=== PATIENT | female | born 1975 | race Caucasian/White ===

== ENCOUNTER 2025-02-26 22:34 | Emergency (ER) | payer BC, SELFPAY ==
[2025-02-26 22:36] VITALS: BP 168/103
--- NOTE | 2025-02-26 23:06 | ED.GENMED ---
History of Present Illness
General
Chief Complaint: Skin Surface Trauma
Source: patient
Exam Limitations: none
Time Seen by Provider: 02/26/25 23:02
Nursing documentation reviewed up to this point in time: agreed with
History of Present Illness
History of Present Illness:
49-year-old female with a past medical history of migraines, asthma, presents ER today with concerns of a laceration above her right eye following getting hit with a cutting board. Patient reports that she is at home and was placing a cutting board
back into the cabinet when a cutting board fell back at her and hit her on the side of her right head. She notes a mild ache in the area of the laceration. She has no headache, no loss of consciousness. She did not fall back and hit her head.
She has had no nausea or vomiting since the injury. She denies any dizziness or lightheadedness. She denies any weakness in her extremities. She reports that right after it happened, she had a moment of blurry vision that has since resolved and
has been improving. She reports that she has no facial pain. She denies ocular pain.
Review of Systems
Review of Systems
All Other Systems: ROS reviewed and negative except as documented in HPI and ROS
Phy Exam
Physical Exam
Physical Exam:
General: Patient is well appearing and in no acute distress; non-toxic
Skin: Warm and dry, no rashes or lesions
Head: 2.5 cm laceration noted underneath the right eyebrow, no tenderness to palpation of the facial bones
Eyes: Sclera non-icteric. EOMs intact. No entrapment. No proptosis.
Cardiac: Regular rate
Peripheral Vascular: No lower extremity swelling or edema
Pulm: Normal respiratory effort
Musculoskeletal: No midline cervical spinal tenderness
Neuro: CN II-XII intact, no focal neurologic deficits.
Psychiatric: Appropriate mood and affect.
Course
Orders/Labs/Results
Orders:
Orders
02/26/25 23:32
Lidocaine/Epinephrine/Tetracai [Let Topical Anesthetic Gel] 3 ml TOPICAL NOW STA
Tetanus/Diphth/Acelpertussis [Adacel] 0.5 ml IM .ONCE ONE
02/26/25 23:40
Visual Acuity- Treatment ONCE
Vital Signs
Initial and Last Documented VS:
Initial Vital Signs
Temp Pulse Resp BP Pulse Ox
97.9 F 92 18 168/103 95
02/26/25 22:36 02/26/25 22:36 02/26/25 22:36 02/26/25 22:36 02/26/25 22:36
Last Documented Vital Signs
Temp Pulse Resp BP Pulse Ox
97.9 F 92 18 168/103 95
02/26/25 22:36 02/26/25 22:36 02/26/25 22:36 02/26/25 22:36 02/26/25 23:06
Procedures
Laceration Closure
right eyebrow:
Status of Wound: clean
Size of Wound in cm: 2.5
Description of Wound Edges: sharp
Preparation: cleaned with saline and cleaned with Betadine
Anesthesia: Topical-LET
Type of Closure: single layer closure and Dermabond-skin glue
MDM/Problems Addressed
Differential Diagnosis Includes:
ddx include laceration, abrasion, concussion
MDM/Problems Addressed:
49-year-old female presents to ER today with concerns of a laceration near her eyebrow after a cutting board fell from her cabinet and hit her above the right eye. She reported a moment of blurry vision after the laceration that quickly resolved.
Currently, no ocular pain she has pain surrounding the laceration. On physical exam, her visual acuity is intact and her extraocular eye movements are intact with no evidence of entrapment. Her laceration was repaired with Dermabond. Her tetanus
is updated. No indication for CAT scan of the head or facial bones at this at this time as patient did not lose consciousness, did not have any nausea or vomiting post head injury, no headache, and on exam she has no periorbital ecchymosis, no
proptopsis, EOMs intact, no focal neuro defeciet. Reviewed case with ED attending. Patient stable for discharge.
Chronic conditions affecting care:
migraines, asthma
*Pulse Oximetry
SaO2: 95
Oxygen Mode of Delivery: Room air
Patient hypoxic: no
*Critical Care Note
Total Time (30-74mins, 75-104mins- exclusive of procedures): Not Applicable
Data Reviewed
Review of Other/Old Records Reveals: Records (no prior ER physician documentation to review )
Source: patient and records
Update Note
Update Note:
Update, I was notified by nursing staff that patient was complaining of pain on her eyeball, when I personally spoke to patient, patient reports that she has pain near the laceration surrounding her eye but no ocular pain. No foreign body
sensation. 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
ED Attending Note
-
Portions of this chart may have been created with voice recognition software.� Occasional wrong word or��sound alike� substitutions may have occurred due to the inherent limitations of voice recognition software.
Discharge Plan
Departure
Patient Disposition: Home (Routine Discharge)
Date of Disposition: 02/27/25
Time of Disposition: 00:22
Patient with high blood pressure during this ER visit?: Yes
Condition: Good
Discharge Problem:
Laceration of right eyebrow without complication
Instructions: Laceration Repair With Glue (DC), Wound Care (DC), BLOOD PRESSURE
Referrals:
UNKNOWN - PT DOES,NOT KNOW [Family Provider]
Activity Restrictions/Additional Instructions:
Please keep wound dry for 24 hours. After 24 hours, you can let water reviewed, please do not scrub the wound. Please do not use alcohol or hydrogen peroxide in diagnosis. Below. Please do not use petroleum jelly as this will also dissolve the
glue. Please continue monitor your symptoms.
Please follow up with your primary care provider for reassessment in one week.
PLEASE RETURN TO ER SHOULD YOU DEVELOP PURULENT DRAINAGE FROM THE WOUND, SURROUNDING REDNESS TO THE WOUND, INCREASING PAIN, FEVERS OR CHILLS, OR ANY OTHER SIGNS OR SYMPTOMS WORRISOME TO YOU.
Interventions
Interventions:
*General Assessment Last Done: 02/26/25 22:36
*Neglect/Abuse Screening Last Done: 02/26/25 22:36
*ED COVID-19 Vaccine History Last Done: 02/26/25 22:59
*ED Influenza Vaccine History Last Done: 02/26/25 22:59
[facility] [place] Fall Risk Assessment Tool Last Done: 02/26/25 22:59
*Risk Screen - Suicide (C-SSRS) Last Done: 02/26/25 22:36
*Nursing Disposition Last Done: 02/27/25 01:38
ED-Skin Assessment Last Done: 02/26/25 22:58
Discharge Date and Time
Discharge Date/Time: 02/27/25 01:00
Print Language: BRAZILIAN
[2025-02-26] MEDS: ADACEL 0.5 ML IM (23:40)
[2025-02-26] MEDS: LET TOPICAL ANESTHETIC GEL 3 ML TOPICAL (23:41)
== END 2025-02-27 01:00 | disposition home or self-care (01) ==
LOC: EMR 22:34
PROVIDERS: EMERGENCY PHYSICIAN Student in an Organized Health Care Education/Training Program
DX: S01.111A Laceration without foreign body of right eyelid and periocular area, initial encounter (principal); W22.8XXA Striking against or struck by other objects, initial encounter; J45.909 Unspecified asthma, uncomplicated; Z23 Encounter for immunization
CPT/HCPCS: 90471; 12011; 99282; 90715